=== PATIENT | female | born 1995 | race African-American/Black ===

== ENCOUNTER 2016-08-16 19:46 | Emergency (ER) | payer BC, OTHER ==
[~2016-08-16] VITALS: Ht 157.5 cm; Wt 73.6 kg
[~2016-08-16 19:46] MED LIST: [UNRECOGNIZED DRUG - OTHER] PO
[2016-08-16 19:49] VITALS: Ht 157.5 cm; Wt 73.6 kg
[2016-08-16] MEDS ORDERED: LORAZEPAM 1 MG TAB SL STA (20:10)
[2016-08-16] MEDS ORDERED: KETOROLAC TROMETHAMINE 60 MG/2 ML VIAL IM STA (20:36)
[2016-08-16] MEDS ORDERED: ONDANSETRON 4MG OD TAB PO ONE (20:45)
[2016-08-16 21:17] LABS: BASO % 0.4 %; BASO ABS # 0.03 K/uL (0-0.2); COMPLETE YES; HEMATOCRIT 39.9 % (37-47); IG% 0.1 %; LYMPH % 24.4 %; LYMPH ABS # 1.79 K/uL (1.2-3.4); MEAN CELL VOLUME 84.5 fL (80-100); MEAN CORPUSCULAR HEMOGLOBIN 29.4 pg (25-34); MEAN CORPUSCULAR HGB CONC 34.8 g/dl (32-36); MEAN PLATELET VOLUME 9.7 fL (7.4-10.4); MONO % 6.8 %; NEUT % 67.3 %; PLATELET COUNT 263 K/uL (130-400); RED BLOOD COUNT 4.72 M/uL (4.2-5.4); WHITE BLOOD COUNT 7.33 K/uL (4.8-10.8)
[2016-08-16 21:20] LABS: URINE APPEARANCE CLEAR (CLEAR); URINE BILIRUBIN NEG (NEG); URINE COLOR YELLOW; URINE NITRITE NEG (NEG); URINE PH 6.5 (4.5-7.5); URINE SPECIFIC GRAVITY 1.005 (1.000-1.030); UROBILINOGEN NEG (NEG)
[2016-08-16] MEDS ORDERED: ASPI-390 PO (21:20)
[2016-08-16] MEDS ORDERED: LORA-741 PO (21:20)
[2016-08-16 21:26] LABS: MANUAL MICROSCOPIC REQUIRED? NO; REVIEW REQ? NO
[2016-08-16 21:43] LABS: BUN/CREATININE RATIO 9.1 (10-20); CALCIUM 8.9 mg/dl (8.5-10.1); CREATININE 0.7 mg/dl (0.60-1.20); POTASSIUM 3.7 mmol/L (3.5-5.1)
[2016-08-16 21:53] LABS: ALB/GLOB RATIO 1.1 (0.9-2); THYROID STIMULATING HORMONE 1.38 uIu/ml (0.300-4.500)
[2016-08-16 21:54] LABS: BENZODIAZEPINE, URINE NEG (NEG); COCAINE,URINE NEG (NEG); PHENCYCLIDINE, URINE NEG (NEG)
[2016-08-16 22:25] VITALS: BP 131/87; PULSE 95; TEMP 36.6; O2SAT 97
--- NOTE | 2016-08-17 00:57 | EMERGENCY ROOM VISIT NOTE ---
History Report prepared by Coty: Elizabeth Juarez Under the Supervision of: Dr. Kendrick Rashid D.O. First contact with patient: 19:56 Chief Complaint: ANXIETY Stated Complaint: ANXIETY ATTACK History of Present Illness The patient is a 21 year old female who presents to the Emergency Room via friends to be evaluated for an episode of anxiety attack that occurred this evening while she was in class. The patient started to feel anxiety symptom about one week ago; she relates that she kept putting off these symptoms. Tonight, the patient states that her heart started to race and she could not concentrate while in class. The patient states " I just felt like I could not take my anxiety any more." She notes the she only wanted to cry. The patient has been having frequent headaches, which are causing her to have more anxiety. The patient relates that she was evaluated in an ED close to home two days ago; she notes that she had a normal head CT at the time. She denies current heart palpitations. She states that she has some tension in her back after the heart palpitations. The patient states that she has a history of panic attacks, for which she was treated with medication. The patient has recently started to take Lorazepam again. . The patient took a dose this morning. She has an appointment with her therapist tomorrow. The patient denies using alcohol, drugs. Her last menstrual period was two days ago. She denies a chance of , homicidal or suicidal ideation. The patient states that she has an appointment with a therapist tomorrow. Source of History: patient Onset: this evening Position: other (global ) Quality: other (anxiety) Timing: other (episode) Associated Symptoms: + headache Note: The patient states that her heart started to race and she could not concentrate while in class. The patient states " I just felt like I could not take my anxiety any more." She notes the she only wanted to cry. She denies current heart palpitations. She denies homicidal or suicidal ideation. Review of Systems See HPI for pertinent positives & negatives. A total of 10 systems reviewed and were otherwise negative. Past Medical & Surgical Medical Problems: (1) Anxiety Family History No pertinent family history Social History Smoking Status: Never Smoker Alcohol Use: none Drug Use: none Marital Status: single Housing Status: lives with roommate Occupation Status: [employer] student Current/Historical Medications Scheduled PRN Ligjxsj-Rfcorwyoiaufa-Vguhteoq (Excedrin Migraine), 1 TAB PO Q12 PRN for Migraine Lorazepam (Ativan), 0.5 MG PO Q8 PRN for Anxiety Allergies Coded Allergies: No Known Allergies (Unverified , 08/16/16) Physical Exam Vital Signs Date Time Temp Pulse Resp B/P Pulse Ox O2 Delivery O2 Flow Rate FiO2 08/16/16 22:25 36.6 95 18 131/87 97 08/16/16 22:17 95 18 131/87 97 Room Air 08/16/16 19:49 36.6 107 20 141/90 98 Room Air Physical Exam GENERAL: Patient is awake, alert, somewhat anxious and guarded. EYES: The conjunctivae are clear. The pupils are round and reactive. EARS, NOSE, MOUTH AND THROAT: The nose is without any evidence of any deformity. Mucous membranes are moist tongue is midline NECK: The neck is nontender and supple. RESPIRATORY: Normal respiratory effort is noted there is no evidence of wheezing rhonchi or rales CARDIOVASCULAR: Tachycardic rate and regular rhythm noted there no murmurs. GASTROINTESTINAL: The abdomen is soft. Bowel sounds are present in all quadrants. Abdomen is nontender PELVIS: The Pelvis is stable. No tenderness to palpation is noted. BACK: No midline tenderness or or step-off noted range of motion in flexion extension as well as rotation no signs of muscle spasm noted MUSCULOSKELETAL/EXTREMITIES: There is no evidence of gross deformity full range of motion is noted in the hips and shoulders SKIN: There is no obvious evidence of any rash. There are no petechiae, pallor or cyanosis noted. NEUROLOGIC: Patient is awake alert and oriented x3 strength is symmetric patellar reflexes are 2+ bilaterally PSYCHOLOGIC: Affect was flat, patient appeared to be anxious, currently denying any suicidal or homicidal ideation, makes good eye contact most of the time. Medical Decision & Procedures Laboratory Results 08/16/16 21:01 Red Blood Count 4.72, Mean Corpuscular Volume 84.5, Mean Corpuscular Hemoglobin 29.4, Mean Corpuscular Hemoglobin Concent 34.8, Mean Platelet Volume 9.7, Neutrophils (%) (Auto) 67.3, Lymphocytes (%) (Auto) 24.4, Monocytes (%) (Auto) 6.8, Eosinophils (%) (Auto) 1.0, Basophils (%) (Auto) 0.4, Neutrophils # (Auto) 4.93, Lymphocytes # (Auto) 1.79, Monocytes # (Auto) 0.50, Eosinophils # (Auto) 0.07, Basophils # (Auto) 0.03 08/16/16 21:01 Test 08/16/16 20:20 08/16/16 21:01 Urine Color YELLOW Urine Appearance CLEAR (CLEAR) Urine pH 6.5 (4.5-7.5) Urine Specific [place] 1.005 (1.000-1.030) Urine Protein NEG (NEG) Urine Glucose (UA) NEG (NEG) Urine Ketones NEG (NEG) Urine Occult Blood NEG (NEG) Urine Nitrite NEG (NEG) Urine Bilirubin NEG (NEG) Urine Urobilinogen NEG (NEG) Urine Leukocyte Esterase TRACE (NEG) Urine WBC (Auto) 1-5 /hpf (0-5) Urine RBC (Auto) 0-4 /hpf (0-4) Urine Hyaline Casts (Auto) 0 /lpf (0-5) Urine Epithelial Cells (Auto) 5-10 /lpf (0-5) Urine Bacteria (Auto) NEG (NEG) Urine Test NEG (NEG) Urine Opiates Screen NEG (NEG) Urine Methadone, Qualitative NEG (NEG) Urine Barbiturates NEG (NEG) Urine Phencyclidine (PCP) Level NEG (NEG) Ur Amphetamine/Methamphetamine NEG (NEG) MDMA (Ecstasy) Screen NEG (NEG) Urine Benzodiazepines Screen NEG (NEG) Urine Cocaine Metabolite NEG (NEG) Urine Marijuana (THC) NEG (NEG) White Blood Count 7.33 K/uL (4.8-10.8) Red Blood Count 4.72 M/uL (4.2-5.4) Hemoglobin 13.9 g/dL (12.0-16.0) Hematocrit 39.9 % (37-47) Mean Corpuscular Volume 84.5 fL (80-100) Mean Corpuscular Hemoglobin 29.4 pg (25-34) Mean Corpuscular Hemoglobin Concent 34.8 g/dl (32-36) Platelet Count 263 K/uL (130-400) Mean Platelet Volume 9.7 fL (7.4-10.4) Neutrophils (%) (Auto) 67.3 % Lymphocytes (%) (Auto) 24.4 % Monocytes (%) (Auto) 6.8 % Eosinophils (%) (Auto) 1.0 % Basophils (%) (Auto) 0.4 % Neutrophils # (Auto) 4.93 K/uL (1.4-6.5) Lymphocytes # (Auto) 1.79 K/uL (1.2-3.4) Monocytes # (Auto) 0.50 K/uL (0.11-0.59) Eosinophils # (Auto) 0.07 K/uL (0-0.5) Basophils # (Auto) 0.03 K/uL (0-0.2) RDW Standard Deviation 38.1 fL (36.4-46.3) RDW Coefficient of Variation 12.4 % (11.5-14.5) Immature Granulocyte % (Auto) 0.1 % Immature Granulocyte # (Auto) 0.01 K/uL (0.00-0.02) Anion Gap 9.0 mmol/L (3-11) Est Creatinine Clear Calc Drug Dose 118.4 ml/min Estimated GFR () 142.5 Estimated GFR (Non- 123.0 BUN/Creatinine Ratio 9.1 (10-20) Calcium Level 8.9 mg/dl (8.5-10.1) Total Bilirubin 0.5 mg/dl (0.2-1) Direct Bilirubin 0.1 mg/dl (0-0.2) Aspartate Amino Transf (AST/SGOT) 20 U/L (15-37) Alanine Aminotransferase (ALT/SGPT) 22 U/L (12-78) Alkaline Phosphatase 109 U/L (45-117) Total Protein 8.2 gm/dl (6.4-8.2) Albumin 4.3 gm/dl (3.4-5.0) Globulin 3.9 gm/dl (2.5-4.0) Albumin/Globulin Ratio 1.1 (0.9-2) Thyroid Stimulating Hormone (TSH) 1.380 uIu/ml (0.300-4.500) Free Thyroxine 1.19 ng/dl (0.80-1.60) Ethyl Alcohol mg/dL < 3.0 mg/dl (0-3) Laboratory results per my review. Medications Administered Medications (Trade) Dose Ordered Sig/Ad Route Start Time Stop Time Status Last Admin Dose Admin Lorazepam (Ativan Tab) 1 mg NOW STAT SL 08/16/16 20:10 08/16/16 20:12 DC 08/16/16 20:39 1 MG Ketorolac Tromethamine (Toradol Inj) 60 mg NOW STAT IM 08/16/16 20:36 08/16/16 20:37 DC 08/16/16 20:49 60 MG Ondansetron HCl (Zofran Odt) 4 mg ONE ONCE PO 08/16/16 20:45 08/16/16 20:46 DC 08/16/16 20:49 4 MG ECG Indication: tachycardia Rate (beats per minute): 102 Rhythm: sinus tachycardia Findings: RBBB (incomplete), no ectopy, other (no acute ST segment abnormality) ED Course 2002: The patient was evaluated in room A7. A complete history and physical examination were performed. 2009: Ativan Tab 1 mg SL 2035: Toradol 60 mg IM 2044: Zofran 4 mg PO 2137: The patient had a normal head CT on August 14. 2211: Upon reevaluation, the patient is doing well. I discussed the results and treatment plan with the patient. She verbalized agreement of the treatment plan. The patient was discharged home. Medical Decision Differential diagnosis: Etiologies such as mood disorder, infection, hypoglycemia, electrolyte abnormalities, cardiac sources, intracerebral event, toxicologic, neurologic, as well as others were entertained. Nursing notes reviewed. The patient is a 21-year-old female who presented to the emergency apartment for an evaluation of anxiety. The patient states that she's been having significant anxiety especially related to classes. She had a similar episode a few years back. The patient has an appointment tomorrow with [facility] and also has medications for anxiety with her. She took one of her medications for anxiety earlier today. She was treated with Ativan in the emergency apartment. She was also given medications for pain and nausea because of ongoing problems with tension headaches. The patient was seen at an outside emergency department all she was home over the weekend. I did review the patient's your records from that visit. Her CAT scan of the head was obtained and was negative. The patient was medically cleared in the emergency department. She does not appear to meet any criteria for involuntary admission at this time. She was encouraged to rest and avoid any strenuous activity. She was also encouraged to continue all medications as prescribed. She was also encouraged to follow-up with her therapist tomorrow as scheduled but call crisis or return to the emergency apartment immediately if symptoms change worsen or the need arises. Impression Primary Impression: Anxiety Additional Impressions: Tension headache Palpitations Scribe Attestation The scribe's documentation has been prepared under my direction and personally reviewed by me in its entirety. I confirm that the note above accurately reflects all work, treatment, procedures, and medical decision making performed by me. Departure Information Dispostion Home / Self-Care Referrals No Doctor, Assigned (PCP) Forms HOME CARE DOCUMENTATION FORM, IMPORTANT VISIT INFORMATION Patient Instructions Anxiety Body Response, Anxiety Disorder, My [facility] Additional Instructions Follow-up with [facility] tomorrow as scheduled. Continue all medications as prescribed. Rest and avoid any strenuous activity. Call crisis or return to emergency department immediately if symptoms change worsen or the need arises. Problem Qualifiers
== END 2016-08-16 22:26 | disposition home or self-care (01) ==
LOC: C.EDB 19:48 → C.EDA 22:26
DX: F41.9 Anxiety disorder, unspecified (principal); G44.209 Tension-type headache, unspecified, not intractable